=== PATIENT | male | born 1990 | race Hispanic/Latino ===

== ENCOUNTER 2018-01-17 14:50 | Emergency (ER) | payer OTHER ==
[2018-01-17 14:55] VITALS: O2SAT 98
[2018-01-17] MEDS ORDERED: Multivitamin (MVI) 10 ML, Thiamine 100 MG, Folic Acid 1 MG in Sodium Chloride 0.9% 1,00... IV STA (15:22)
[2018-01-17 15:47] LABS: BASO % 0.4 % (0.0-2.0); EOS % 0.8 % (0.0-4.0); HEMOGLOBIN 16.2 g/dL (12.0-18.0); LYMPH % 33.3 % (20.0-40.0); MEAN CELL VOLUME 90.5 fl (80.0-94.0); MEAN CORPUSCULAR HEMOGLOBIN 31.4 pg (27.0-31.0); MEAN CORPUSCULAR HGB CONC 34.8 g/dL (33.0-37.0); MEAN PLATELET VOLUME 9.1 fl (7.2-11.7); MONO # 0.6 K/uL (0.0-0.8); MONO % 9.1 % (0.0-10.0); NEUT # 3.5 K/uL (1.8-7.0); NEUT % 56.4 % (50.0-75.0); NRBC % 2.5 % (0.0-0.0); RBC 5.15 Mil/uL (4.40-5.90); RED CELL DISTRIBUTION WIDTH 13.1 % (11.5-14.5); WHITE BLOOD COUNT 6.1 K/uL (4.8-10.8)
--- NOTE | 2018-01-17 15:48 | ED PDOC ---
HPI: Chest Pain Time Seen by Provider: 01/17/18 15:09 Chief Complaint (Nursing): Palpitations Chief Complaint (Provider): Palpitations History Per: Patient History/Exam Limitations: no limitations Onset/Duration Of Symptoms: Days (x7) Current Symptoms Are (Timing): Still Present Associated Symptoms: Syncope (near) Additional Complaint(s): 27 y/o male with a PMHx of HTN and ADHD presents to the ED for evaluation of intermittent palpitations, onset one week ago. Patient states palpitations worsened today and is associated with severe lightheadedness and near syncope. Patient admits to drinking heavily last night with some use of recreational drugs. Patient admits to drinking similarly about two to three times a week for many years. Patient reports of having run out of losartan medications yesterday. Patient additionally reports of taking adderall but is trying to cut down on them. Otherwise, patient denies chest pain, shortness of breath, focal weakness, numbness and any head injuries. PMD: Broderick Bateman (in [place], [place]). Past Medical History Reviewed: Historical Data, Nursing Documentation, Vital Signs Vital Signs: Last Vital Signs Temp 98.4 F 01/17/18 14:55 Pulse 105 H 01/17/18 14:55 Resp 18 01/17/18 14:55 BP 155/78 H 01/17/18 14:55 Pulse Ox 98 01/17/18 14:55 - Medical History PMH: HTN Other PMH: ADHD - Surgical History Other surgeries: Wrist Surgery - Family History Family History: States: Unknown Family Hx - Social History Current smoker - smoking cessation education provided: Yes Alcohol: > 2 Drinks/Day Drugs: Other (Recreational Drugs) - Home Medications Home Medications: Ambulatory Orders Medication Instructions Recorded RX: Losartan [Cozaar] 1 tab PO DAILY #30 tab 01/17/18 - Allergies Allergies/Adverse Reactions: Allergies Allergy/AdvReac Type Severity Reaction Status Date / Time No Known Allergies Allergy Verified 01/17/18 14:57 GALA Risk Score for UA/NSTEMI - GALA Risk Score Age > 64: NO GALA Score: 0 Risk %: 5% Curb-65 Severity Score - CURB-65 Severity Score Confusion: No Systolic BP <90 or Diastolic BP less than/equal 60mmHg: No Age >64: No Curb-65 Score: 0 Percentage 30-day mortality: 0.6% Wells Criteria for PE - Wells Criteria for Pulmonary Embolism Heart Rate >100: No Total Score: 0 Review of Systems ROS Statement: Except As Marked, All Systems Reviewed And Found Negative (as per HPI) Cardiovascular: Positive for: Palpitations. Negative for: Chest Pain Respiratory: Negative for: Shortness of Breath Neurological: Positive for: Other (Severe lightheadedness and near syncope). Negative for: Weakness (focal), Numbness Physical Exam - Reviewed Nursing Documentation Reviewed: Yes Vital Signs Reviewed: Yes - Physical Exam Appears: Positive for: No Acute Distress (but tired appearing and somewhat tremorous) Head Exam: Positive for: ATRAUMATIC, NORMOCEPHALIC Skin: Positive for: Warm, Dry, Pallor Eye Exam: Positive for: EOMI, PERRL ENT: Positive for: Pharynx Is (clear). Negative for: Pharyngeal Erythema, Tons illar Exudate Neck: Positive for: Painless ROM, Supple Cardiovascular/Chest: Positive for: Tachycardia (with regular rhythm). Negative for: Murmur Respiratory: Positive for: Normal Breath Sounds. Negative for: Wheezing Gastrointestinal/Abdominal: Positive for: Soft. Negative for: Tenderness Back: Positive for: Normal Inspection. Negative for: Decreased ROM Extremity: Positive for: Normal ROM. Negative for: Deformity Lymphatic: Negative for: Adenopathy Neurologic/Psych: Positive for: Alert, Oriented (x3), Mood/Affect (Anxious mood/affect). Negative for: Motor/Sensory Deficits - Laboratory Results Result Diagrams: 01/17/18 15:40 01/17/18 15:40 - ECG ECG Rhythm: Positive for: Normal QRS, Normal ST Segment, Sinus Rhythm Rate: 98 O2 Sat by Pulse Oximetry: 98 (RA) Pulse Ox Interpretation: Normal Medical Decision Making Medical Decision Making: Time: 1519 Impression: Palpitations Differentials include but not limited to Electrolyte Abnormality, Dehydration, Anemia, Drug and EtOH abuse/withdrawal Plan: -- EKG -- Alcohol Serum -- B-Type Natriuretic -- CMP -- Creatine Phosphokinase -- Urine Drug Screen -- Magnesium -- Phosphorus -- Thyroid Stimulating Hormone -- Troponin I -- ED Urine Dipstick -- CBC with Differentials -- CXR Two Views -- Sodium Chloride 0.9% 1000ml MVI 10ml Vitamin B1 Inj 100 mg Folic Acid 1 mg IV 150 mls/hr -- Retail Maintenance Technician -- IV Insertion Time: 1542 -- Librium 50 mg PO Labs demonstrate small amount of alcohol in blood. +UDS No emergently significant abnormalities DW pt findings. Strongly advised lifestyle changes and followup with P /cardiology. Scribe Attestation: Documented by Shireen Garibay, acting as a scribe for Marietta Johns MD. Provider Scribe Attestation: All medical record entries made by the Scribe were at my direction and personally dictated by me. I have reviewed the chart and agree that the record accurately reflects my personal performance of the history, physical exam, medical decision making, and the department course for this patient. I have also personally directed, reviewed, and agree with the discharge instructions and disposition. Disposition - Clinical Impression Clinical Impression: Palpitations, Polysubstance abuse - Disposition Referrals: Nitish Lucas MD [Staff Provider] - (FOLLOW UP WITH CHANNEL PROCESS SUPERVISOR FOR FURTHER EVALUATION ) Disposition: Routine/Home Disposition Time: 19:00 Condition: IMPROVED Additional Instructions: DRINK PLENTY OF HYDRATING FLUIDS SUCH GATORADE, JUICE AND WATER AND REST EAT AT LEAST 3 WELL-BALANCED MEALS A DAY, AVOID EXCESSIVE ALCOHOL AND ANY DRUG USE, AND SLEEP AT LEAST 8 HOURS A NIGHT. FOLLOWUP WITH YOUR DOCTOR AND CHANNEL PROCESS SUPERVISOR IN A WEEK FOR REEVALUATION AND FURTHER MANAGEMENT. Prescriptions: RX: Losartan [Cozaar] 1 tab PO DAILY #30 tab Instructions: Palpitations (DC), Polysubstance Abuse (DC), Near Fainting (DC) Forms: [facility] ED School/Work Excuse
[2018-01-17 16:07] LABS: ALB/GLOB RATIO 1.3 (1.0-2.1); ALBUMIN 4.7 g/dL (3.5-5.0); ALT/SGPT 34 U/L (21-72); AST/SGOT 22 U/L (17-59); BLOOD UREA NITROGEN 12 mg/dl (9-20); CALCIUM 9.2 mg/dL (8.4-10.2); GFR NON-AFRICAN AMERICAN > 60
[2018-01-17] MEDS ORDERED: Potassium & Sodium Phosphate PO STA (16:27)
[2018-01-17 16:31] LABS: B-TYPE NATRIURETIC PEPTIDE < 11.1 pg/ml (0-450)
--- NOTE | 2018-01-17 16:31 | RAD ---
Date of service: 01/17/2018 HISTORY: palpitations COMPARISON: No prior. TECHNIQUE: Chest PA and lateral FINDINGS: LUNGS: No active pulmonary disease. PLEURA: No significant pleural effusion identified. No pneumothorax apparent. CARDIOVASCULAR: No aortic atherosclerotic calcification present. Normal cardiac size. No pulmonary vascular congestion. OSSEOUS STRUCTURES: No significant abnormalities. VISUALIZED UPPER ABDOMEN: Normal. OTHER FINDINGS: None. IMPRESSION: No active disease.
[2018-01-17 16:36] LABS: BARBITURATES, UR NEGATIVE (NEGATIVE); BENZODIAZEPINES, UR NEGATIVE (NEGATIVE); OPIATES, UR NEGATIVE (NEGATIVE); PHENCYCLIDINE, UR NEGATIVE (NEGATIVE)
[2018-01-18 02:58] VITALS: PULSE 94
[2018-01-18 03:02] VITALS: BP 138/73; RESP 18; TEMP 98.6
--- NOTE | 2018-01-18 06:08 | CARD ---
APPROVED REPORT Date of service: 01/17/2018 EKG Measurement Heart [id number] <Conclusion> Normal sinus rhythm Normal ECG
== END 2018-01-17 19:25 | disposition home or self-care (01) ==
LOC: H.ER 14:50
DX: R00.2 Palpitations (principal); F19.10 Other psychoactive substance abuse, uncomplicated; R42 Dizziness and giddiness; E86.0 Dehydration; F90.9 Attention-deficit hyperactivity disorder, unspecified type; I10 Essential (primary) hypertension; Z79.899 Other long term (current) drug therapy
CPT/HCPCS: 71046; 80053; 80320; 80324; 80345; 80346; 80349; 80353; 80358; 80361; 82550; 83735; 83880; 83992; 84100; 84443; 84484; 85025; 93005; 96374; 99285; J3411; J7030